=== PATIENT | male | born 1995 | race Caucasian/White ===

== ENCOUNTER 2017-07-11 19:23 | Emergency (ER) | payer OTHER ==
[~2017-07-11] VITALS: Ht 180.3 cm; Wt 114.3 kg
[2017-07-11 19:40] VITALS: Ht 180.3 cm; Wt 114.3 kg
[2017-07-11 21:38] VITALS: BP 132/73
== END 2017-07-11 21:38 | disposition home or self-care (01) ==
LOC: ED 19:23
DX: K52.9 Noninfective gastroenteritis and colitis, unspecified (principal)
CPT/HCPCS: Q0162